=== PATIENT | female | born 1935 | race Caucasian/White ===

== ENCOUNTER → 2017-04-22 | Outpatient (CLI) | payer MEDICARE ==
[~2017-04-22] MED LIST: AMLO5TAB2 PO; ASPI-1026 PO; CHOL500051 PO
== END | disposition home or self-care (01) ==
LOC: OIH 04-21 11:16
PROVIDERS: ATTEND Neurological Surgery
DX: M16.0 Bilateral primary osteoarthritis of hip (principal)
CPT/HCPCS: 73521

== ENCOUNTER → 2017-05-21 | Outpatient (CLI) | payer MEDICARE | END | disposition home or self-care (01) | LOC: RAH 09:06 | PROVIDERS: ATTEND Internal Medicine | DX: Z01.818 Encounter for other preprocedural examination (principal) | CPT/HCPCS: 71046 ==

== ENCOUNTER → 2018-03-01 | Outpatient (CLI) | payer MEDICARE ==
[~2018-03-01] MED LIST changes: -AMLO5TAB2 PO; +AMLO5TAB7 PO
== END | disposition home or self-care (01) ==
LOC: RAH 12:37
PROVIDERS: ATTEND Internal Medicine
DX: R05 Cough (principal)
CPT/HCPCS: 71046

== ENCOUNTER 2018-12-28 05:59 | Day surgery (SDC) | payer MEDICARE ==
[2018-12-24 12:08] LABS: BASOPHILS % (AUTO) 0.6 % (0.0-5.0); MEAN CORPUSCULAR HEMOGLOBIN 27.5 pg (27.0-33.0); MEAN CORPUSCULAR HGB CONC 33.5 g/dL (32.0-36.0); MEAN CORPUSCULAR VOLUME 82.2 fL (79-99); MONOCYTES % (AUTO) 7.5 % (3.0-13.0); NEUTROPHILS % (AUTO) 60.9 % (40.0-77.0); PLATELET COUNT (AUTO) 273 K/uL (130-400); RED BLOOD CELL COUNT(AUTO) 4.87 MIL/uL (4.00-5.50); RED CELL DISTRIBUTION WIDTH 16.2 % (11.0-15.5); WHITE BLOOD COUNT (AUTO) 8.2 K/uL (4.8-10.8)
[2018-12-24 12:17] LABS: CREATININE 0.8 mg/dL (0.5-1.5); POTASSIUM 3.7 mmol/L (3.5-5.1)
[2018-12-24 12:41] VITALS: BP 151/77
--- NOTE | 2018-12-27 11:14 | NUR ---
ABNORMAL EKG INFORMED DR HUTCHINS REGARDING PATIENT'S ABNORMAL EKG. PER DR HUTCHINS, OK TO PROCEED WITH SCHEDULED SI JOINT INJECTION PROCEDURE.
[~2018-12-28] VITALS: Ht 160 cm; Wt 74.4 kg
[2018-12-28] VITALS (13 sets, daily range): BP systolic 115–160; BP diastolic 61–94
[~2018-12-28 05:59] MED LIST changes: -AMLO5TAB7 PO; +AMLO5TAB9 PO; +CEFAZOLIN SODIUM 1 GM VIAL ONE; +LACTATED RINGERS 1000ML 1,000 ML IV ONE
[2018-12-28] MEDS ORDERED: HYDR25TA PO (06:24)
[2018-12-28] MEDS: CEFAZOLIN SODIUM 1 GM VIAL IVP ONE ×2 (06:29→07:35)
[2018-12-28] MEDS ORDERED: LIDOCAINE HCL 1% 20 ML VIAL ONE (07:04)
[2018-12-28] MEDS ORDERED: SODIUM BICARB [NEONATAL] 4.2% 10ML SYG ONE (07:04)
[2018-12-28] MEDS ORDERED: PROPOFOL 10 MG/ML 20ML VIAL IV ONE (07:36)
[2018-12-28] MEDS ORDERED: MIDAZOLAM HCL 1 MG/ML 2ML VIAL ONE (07:36)
[2018-12-28] MEDS ORDERED: FENTANYL CITRATE PF 50 MCG/1 ML 2ML VIAL ONE (07:36)
[2018-12-28] MEDS ORDERED: IOPAMIDOL 10 ML VIAL ONE (07:38)
[2018-12-28] MEDS ORDERED: ONDANSETRON HCL 4 MG/2 ML VIAL ONE (07:46)
[2018-12-28] MEDS ORDERED: KETOROLAC TROMETHAMINE 30MG/ML ONE (07:51)
[2018-12-28] MEDS ORDERED: MEPERIDINE-PF 25 MG/ML SYG ONE (08:11)
== END 2018-12-28 09:35 | disposition home or self-care (01) ==
LOC: DAH 05:59
PROVIDERS: ATTEND Neurological Surgery
DX: M53.3 Sacrococcygeal disorders, not elsewhere classified (principal); I10 Essential (primary) hypertension; Z98.1 Arthrodesis status; Z98.890 Other specified postprocedural states; Z79.899 Other long term (current) drug therapy; Z96.641 Presence of right artificial hip joint
CPT/HCPCS: 36415; 72202; 80048; 85025; 93005; A4215 ×2; A4221; A4222; A4223; A6260; G0260; J0690; J1030; J1885; J2175; J2250; J2405; J2704; J3010; J3490; J7120; Q9966

== ENCOUNTER → 2019-02-28 | Outpatient (CLI) | payer MEDICARE ==
[~2019-02-28] MED LIST changes: -CEFAZOLIN SODIUM 1 GM VIAL ONE; +HYDR25TA PO; -LACTATED RINGERS 1000ML 1,000 ML IV ONE
[2019-02-28 11:12] LABS: CREATININE 0.7 mg/dL (0.5-1.5)
== END | disposition home or self-care (01) ==
LOC: LAB 10:07
PROVIDERS: ATTEND Neurological Surgery
DX: M48.062 Spinal stenosis, lumbar region with neurogenic claudication (principal)
CPT/HCPCS: 36415; 82565; 84520

== ENCOUNTER → 2019-03-03 | Outpatient (CLI) | payer MEDICARE ==
[~2019-03-03] MED LIST changes: +GADODIAMIDE 10 MMOL/20 ML VIAL IV ONE
== END | disposition home or self-care (01) ==
LOC: RAH 08:49
PROVIDERS: ATTEND Neurological Surgery
DX: M48.062 Spinal stenosis, lumbar region with neurogenic claudication (principal); Z98.890 Other specified postprocedural states
CPT/HCPCS: 72158; A9579

== ENCOUNTER 2019-03-08 06:00 | Day surgery (SDC) | payer MEDICARE ==
[2019-03-04 13:36] LABS: BASOPHILS % (AUTO) 0.4 % (0.0-5.0); EOSINOPHILS % (AUTO) 0.7 % (0.0-8.0); LYMPHOCYTES % (AUTO) 34.7 % (21.0-51.0); MEAN CORPUSCULAR HEMOGLOBIN 28.4 pg (27.0-33.0); MEAN CORPUSCULAR HGB CONC 33.5 g/dL (32.0-36.0); MEAN CORPUSCULAR VOLUME 84.9 fL (79-99); MONOCYTES % (AUTO) 5.8 % (3.0-13.0); NEUTROPHILS % (AUTO) 58.4 % (40.0-77.0); NUCLEATED RED BLOOD CELLS 0.1 % (0.0-0.19); PLATELET COUNT (AUTO) 254 K/uL (130-400); RED BLOOD CELL COUNT(AUTO) 4.47 MIL/uL (4.00-5.50); RED CELL DISTRIBUTION WIDTH 16.5 % (11.0-15.5); WHITE BLOOD COUNT (AUTO) 7.2 K/uL (4.8-10.8)
[2019-03-04 13:37] LABS: CREATININE 0.6 mg/dL (0.5-1.5); POTASSIUM 4.1 mmol/L (3.5-5.1)
[2019-03-04 18:37] VITALS: BP 185/98
[2019-03-08] VITALS (15 sets, daily range): BP systolic 146–174; BP diastolic 61–76
[~2019-03-08] VITALS: Ht 157.5 cm; Wt 74.7 kg
[~2019-03-08 06:00] MED LIST changes: -CHOL500051 PO; -GADODIAMIDE 10 MMOL/20 ML VIAL IV ONE; -HYDR25TA PO
[2019-03-08] MEDS ORDERED: LACTATED RINGERS 1000ML 1,000 ML IV ONE (06:09)
[2019-03-08] MEDS ORDERED: SODIUM BICARB [NEONATAL] 4.2% 10ML SYG ONE (06:42)
[2019-03-08] MEDS ORDERED: LIDOCAINE HCL 1% 20 ML VIAL ONE (06:43)
[2019-03-08] MEDS ORDERED: BUPIVACAINE/EPI/PF 0.25% 30ML VIAL IJ ONE (07:13)
--- NOTE | 2019-03-08 08:45 | NUR ---
PATIENT ARRIVED PATIENT BROUGHT TO DAY PATIENT VIA STRETCHER BY PADILLA CRUZ. PATIENT AAOX3, RESPIRATIONS UNLABORED, VITAL SIGNS STABLE. PATIENT DENIES ANY PAIN AT THIS TIME. BRUISING TO RIGHT BUTTOCKS. BANDAID X1 TO RIGHT BUTTOCKS, DRY AND INTACT. S/P TRIGGER POINT INJECTION. SIDERAILS UP X2, BED IN LOWEST POSITION, CALL OSPINA IN REACH.
--- NOTE | 2019-03-08 09:00 | NUR ---
DISCHARGE INSTRUCTIONS DISCHARGE INSTRUCTIONS PROVIDED TO PATIENT, FOLLOW UP APPOINTMENT WITH DR CHOUDHURY PROVIDED. HANDOUTS GIVEN TO PATIENT AND EXPLAINED. ALL QUESTIONS/CONCERNS ADDRESSED.
--- NOTE | 2019-03-08 09:15 | NUR ---
PATIENT DISCHARGED PATIENT DISCHARGED FROM FACILITY VIA WHEELCHAIR AND ASSISTED INTO PRIVATE VEHICLE BEING DRIVEN BY SPOUSE.
== END 2019-03-08 09:15 | disposition home or self-care (01) ==
LOC: DAH 06:00
PROVIDERS: ATTEND Neurological Surgery
DX: M79.18 Myalgia, other site (principal); Z88.1 Allergy status to other antibiotic agents; Z98.890 Other specified postprocedural states; Z79.899 Other long term (current) drug therapy; Z79.82 Long term (current) use of aspirin
CPT/HCPCS: 20552; 36415; 80048; 85025; 93005; A4215; A4221; A4222; A4223; A4663; A6260; J1030; J3490 ×2; J7120

== ENCOUNTER 2020-05-08 05:56 | Day surgery (SDC) | payer MEDICARE ==
[2020-05-04 14:12] VITALS: BP 140/72
[2020-05-08] VITALS (11 sets, daily range): BP systolic 136–163; BP diastolic 61–92
[~2020-05-08] VITALS: Ht 162.6 cm; Wt 68.9 kg
[~2020-05-08 05:56] MED LIST changes: +AMLO-257 PO; -AMLO5TAB9 PO; +ATOR10 PO; +NAPR220T57 PO; +VITAMIN D PO; +ZINC50TA64 PO
[2020-05-08] MEDS: CEFAZOLIN SODIUM 1 GM VIAL IVP SCH ×2 (06:00→08:40)
[2020-05-08] MEDS ORDERED: SODIUM CHLORIDE 0.9% 10 ML VIAL ONE (06:17)
[2020-05-08] MEDS ORDERED: LACTATED RINGERS 1000ML 1,000 ML IV ONE (07:17)
[2020-05-08] MEDS ORDERED: IOPAMIDOL 10 ML VIAL ONE (07:46)
[2020-05-08] MEDS ORDERED: SODIUM BICARB [NEONATAL] 4.2% 10ML SYG ONE (08:30)
[2020-05-08] MEDS ORDERED: BUPIVACAINE/PF 0.25% 30ML VIAL IJ ONE (08:30)
[2020-05-08] MEDS ORDERED: LIDOCAINE HCL 1% 20 ML VIAL ONE (08:30)
[2020-05-08] MEDS ORDERED: ONDANSETRON HCL 4 MG/2 ML VIAL ONE (08:34)
[2020-05-08] MEDS ORDERED: MIDAZOLAM HCL 1 MG/ML 2ML VIAL ONE (08:34)
[2020-05-08] MEDS ORDERED: PROPOFOL 10 MG/ML 20ML VIAL IV ONE (08:38)
== END 2020-05-08 10:25 | disposition home or self-care (01) ==
LOC: DAH 05:56
PROVIDERS: ATTEND Neurological Surgery
DX: M53.3 Sacrococcygeal disorders, not elsewhere classified (principal); Z20.828 Contact with and (suspected) exposure to other viral communicable diseases
CPT/HCPCS: 72202; A4215 ×2; A4221; A4222; A4223; A4663; C9803; G0260; J0690; J1030; J2250; J2405; J2704; J3490 ×2; J7120; Q9966; U0003

== ENCOUNTER 2020-05-23 05:56 | Day surgery (SDC) | payer MEDICARE ==
[2020-05-22 12:18] VITALS: BP 184/69
[2020-05-23] VITALS (11 sets, daily range): BP systolic 141–154; BP diastolic 57–74
[~2020-05-23] VITALS: Ht 162.6 cm; Wt 73.2 kg
[2020-05-23] MEDS ORDERED: SODIUM BICARB [NEONATAL] 4.2% 10ML SYG ONE (07:02)
[2020-05-23] MEDS ORDERED: LIDOCAINE HCL 1% MDV 50ML VIAL ONE (07:02)
[2020-05-23] MEDS ORDERED: LACTATED RINGERS 1000ML 1,000 ML IV ONE (07:12)
[2020-05-23] MEDS ORDERED: CEFAZOLIN SODIUM 1 GM VIAL ONE (07:12)
[2020-05-23] MEDS ORDERED: MIDAZOLAM HCL 1 MG/ML 2ML VIAL ONE (07:41)
[2020-05-23] MEDS ORDERED: FENTANYL CITRATE PF 50 MCG/1 ML 2ML VIAL ONE (07:42)
[2020-05-23] MEDS ORDERED: IOPAMIDOL 10 ML VIAL ONE (07:57)
== END 2020-05-23 10:15 | disposition home or self-care (01) ==
LOC: DAH 05:56
PROVIDERS: ATTEND Neurological Surgery
DX: M53.3 Sacrococcygeal disorders, not elsewhere classified (principal); Z20.822 Contact with and (suspected) exposure to COVID-19; I10 Essential (primary) hypertension; J45.909 Unspecified asthma, uncomplicated; Z79.82 Long term (current) use of aspirin; Z79.899 Other long term (current) drug therapy
CPT/HCPCS: 72202; A4215 ×2; A4221; A4222; A4223; A4600; A4663; A5120; A6260; C9803; G0260; J0690; J1030; J2250; J3010; J3490; J7120; Q9966; U0003

== ENCOUNTER 2020-06-28 05:53 | Day surgery (SDC) | payer MEDICARE ==
[2020-06-27 11:57] VITALS: BP 144/73
[~2020-06-28] VITALS: Ht 162.6 cm; Wt 72.9 kg
[2020-06-28] VITALS (11 sets, daily range): BP systolic 153–173; BP diastolic 56–93
[~2020-06-28 05:53] MED LIST changes: -NAPR220T57 PO; -ZINC50TA64 PO
[2020-06-28] MEDS ORDERED: LACTATED RINGERS 1000ML 1,000 ML IV ONE (06:21)
[2020-06-28] MEDS ORDERED: SODIUM BICARB [NEONATAL] 4.2% 10ML SYG ONE (06:45)
[2020-06-28] MEDS ORDERED: LIDOCAINE HCL 1% 20 ML VIAL ONE ×2 (06:45→07:00)
[2020-06-28] MEDS ORDERED: BUPIVACAINE/PF 0.25% 10ML VIAL IJ ONE ×3 (06:46→07:42)
[2020-06-28] MEDS ORDERED: MIDAZOLAM HCL 1 MG/ML 2ML VIAL ONE (06:56)
[2020-06-28] MEDS ORDERED: FENTANYL CITRATE PF 50 MCG/1 ML 2ML VIAL ONE (06:56)
[2020-06-28] MEDS ORDERED: PROPOFOL 10 MG/ML 20ML VIAL IV ONE (06:57)
[2020-06-28] MEDS ORDERED: IOPAMIDOL 10 ML VIAL ONE (07:15)
== END 2020-06-28 09:15 | disposition home or self-care (01) ==
LOC: DAH 05:53
PROVIDERS: ATTEND Neurological Surgery
DX: M53.3 Sacrococcygeal disorders, not elsewhere classified (principal); Z20.822 Contact with and (suspected) exposure to COVID-19; J45.909 Unspecified asthma, uncomplicated; I10 Essential (primary) hypertension; Z79.899 Other long term (current) drug therapy; Z98.890 Other specified postprocedural states
CPT/HCPCS: 72202; 87426; 93005; A4215 ×2; A4221; A4222; A4223; A4663; A6260; G0260; J1030; J2250; J2704; J3010; J3490 ×4; J7120 ×2; Q9966

== ENCOUNTER → 2020-12-05 | Outpatient (CLI) | payer MEDICARE ==
[2020-12-05 10:32] LABS: CREATININE 0.7 mg/dL (0.5-1.5); POTASSIUM 4.5 mmol/L (3.5-5.1)
== END | disposition home or self-care (01) ==
LOC: LAB 09:57
DX: Z01.812 Encounter for preprocedural laboratory examination (principal)
CPT/HCPCS: 36415; 80048

== ENCOUNTER → 2024-01-25 | Outpatient (CLI) | payer MEDICARE, OTHER ==
[~2024-01-25] MED LIST changes: -ASPI-1026 PO; +CEPH500B PO; +HYDR25TA PO; +LISI40TA9 PO; -VITAMIN D PO
== END | disposition home or self-care (01) ==
LOC: RAH 13:56
PROVIDERS: ATTEND Clinical Nurse Specialist Family Health
DX: E04.2 Nontoxic multinodular goiter (principal)
CPT/HCPCS: 76536

== ENCOUNTER → 2024-02-08 | Outpatient (CLI) | payer MEDICARE, OTHER ==
[2024-02-08 11:05] LABS: INR 0.97 (0.85-1.15); PROTHROMBIN TIME 10.5 SEC (9.6-11.6)
[2024-02-08 11:06] LABS: PARTIAL THROMBOPLASTIN TIME 25.6 SEC (26.3-35.5)
== END | disposition home or self-care (01) ==
LOC: LAB 10:20
PROVIDERS: ATTEND Internal Medicine
DX: E04.9 Nontoxic goiter, unspecified (principal); R55 Syncope and collapse
CPT/HCPCS: 36415; 85610; 85730

== ENCOUNTER → 2024-02-15 | Outpatient (CLI) | payer MEDICARE, OTHER ==
--- NOTE | 2024-02-15 11:03 | HMCIMG ---
US FINE NEEDLE ASP IR HISTORY: Right thyroid nodule COMPARISON: None TECHNIQUE: Informed consent was obtained. Risks and benefits were explained to the patient. A timeout was performed. Patient was prepped and draped in a sterile fashion. Local anesthetics was given as required. Under ultrasound guidance, right thyroid mass was localized. Needle aspiration was performed. 4 passes were made. FINDINGS: Patient tolerated procedure without complication. Patient left the department in good condition. IMPRESSION: 1. Uncomplicated ultrasound guidance right thyroid nodule needle aspiration.
== END | disposition home or self-care (01) ==
LOC: RAH 07:33
DX: E04.9 Nontoxic goiter, unspecified (principal); J30.9 Allergic rhinitis, unspecified; E78.00 Pure hypercholesterolemia, unspecified; I10 Essential (primary) hypertension; Z86.73 Personal history of transient ischemic attack (TIA), and cerebral infarction without residual deficits; Z98.51 Tubal ligation status; Z96.641 Presence of right artificial hip joint; Z98.42 Cataract extraction status, left eye; Z98.41 Cataract extraction status, right eye; Z88.1 Allergy status to other antibiotic agents; Z98.890 Other specified postprocedural states
CPT/HCPCS: 10005; 76942; 88173; 88305